=== PATIENT | female | born 1995 | race Caucasian/White ===

== ENCOUNTER 2025-06-09 05:15 | Inpatient (IN) | payer OTHER ==
[~2025-06-09 05:15] MED LIST: Sodium Chloride 0.9% 10 ML Syringe FLUSH PRN
[2025-06-09] MEDS ORDERED: Lactated Ringers 1,000 ML IV SCH (05:30)
[2025-06-09 05:42] LABS: BASOPHILS ABSOLUTE AUTO 0.0 K/mm3 (0.0-0.2); BASOPHILS PERCENT AUTO 0.3 % (0.0-1.0); EOSINOPHILS ABSOLUTE AUTO 0.1 K/mm3 (0.0-0.4); EOSINOPHILS PERCENT AUTO 0.7 % (0.0-6.0); IMMATURE GRAN ABSOLUTE AUTO 0.12 K/mm3 (0.00-0.05); IMMATURE GRAN PERCENT AUTO 1.0 % (0.0-0.4); LYMPHOCYTES ABSOLUTE AUTO 2.2 K/mm3 (1.0-4.8); LYMPHOCYTES PERCENT AUTO 18.8 % (24.0-44.0); MEAN PLATELET VOLUME 10.1 fl (9.4-12.3); MONOCYTES ABSOLUTE AUTO 0.7 K/mm3 (0.0-0.8); MONOCYTES PERCENT AUTO 5.9 % (0.0-8.0); NEUTROPHILS ABSOLUTE AUTO 8.7 K/mm3 (1.8-7.7); NEUTROPHILS PERCENT AUTO 73.3 % (41.0-71.0); NRBC ABSOLUTE 0.08 (0.00-0.02); NRBC PERCENT 0.7 % (0.0-0.2); PLATELET COUNT,PLT 183 K/mm3 (150-400); RED BLOOD CELL COUNT 3.41 M/mm3 (4.10-5.30); WHITE BLOOD CELL COUNT,WBC 11.92 K/mm3 (3.9-11.3)
[2025-06-09] MEDS: Lactated Ringers 1,000 ML IV SCH (06:05)
[2025-06-09] MEDS ORDERED: Morphine PF 10 MG/10 ML SDV ONE (06:28)
[2025-06-09] MEDS ORDERED: diphenhydrAMINE 50 MG/ML SDV IVPUSH PRN ×2 (06:35→11:01)
[2025-06-09] MEDS ORDERED: fentaNYL 100 MCG/2 ML SDV IVPUSH PRN (06:35)
[2025-06-09] MEDS ORDERED: Ondansetron 4 MG/2 ML SDV IVPUSH PRN (06:35)
[2025-06-09] MEDS: Citric Acid/Sodium Citrate Solution 30 ML Cup PO ONE (06:47)
[2025-06-09] MEDS ORDERED: Oxytocin/0.9 % Sodium Chloride 30 UNIT/500 ML BAG IV SCH (07:00)
[2025-06-09] MEDS ORDERED: Lactated Ringers 1,000 ML ONE (07:40)
[2025-06-09] MEDS ORDERED: Ketorolac 30 MG/ML SDV ONE (08:21)
[2025-06-09] MEDS ORDERED: ePHEDrine 50 MG/ML SDV IVPUSH PRN (11:01)
[2025-06-09] MEDS ORDERED: Acetaminophen/HYDROcodone 325-5 MG Tab PO PRN (11:01)
[2025-06-09] MEDS ORDERED: Naloxone 0.4 MG/ML SDV IVPUSH PRN (11:01)
[2025-06-09] MEDS ORDERED: Acetaminophen/oxyCODONE 325-5 MG Tab PO PRN (11:09)
[2025-06-09] MEDS: Acetaminophen/oxyCODONE 325-5 MG Tab PO PRN (12:46)
[2025-06-09] MEDS: Ondansetron 4 MG/2 ML SDV IVPUSH PRN (13:20)
[2025-06-09] MEDS: Ketorolac 30 MG/ML SDV IVPUSH SCH (14:31)
[2025-06-10 05:48] LABS: BASOPHILS ABSOLUTE AUTO 0.0 K/mm3 (0.0-0.2); BASOPHILS PERCENT AUTO 0.4 % (0.0-1.0); EOSINOPHILS ABSOLUTE AUTO 0.1 K/mm3 (0.0-0.4); EOSINOPHILS PERCENT AUTO 1.1 % (0.0-6.0); IMMATURE GRAN ABSOLUTE AUTO 0.05 K/mm3 (0.00-0.05); IMMATURE GRAN PERCENT AUTO 0.7 % (0.0-0.4); LYMPHOCYTES ABSOLUTE AUTO 1.5 K/mm3 (1.0-4.8); LYMPHOCYTES PERCENT AUTO 20.8 % (24.0-44.0); MEAN PLATELET VOLUME 10.1 fl (9.4-12.3); MONOCYTES ABSOLUTE AUTO 0.5 K/mm3 (0.0-0.8); MONOCYTES PERCENT AUTO 6.2 % (0.0-8.0); NEUTROPHILS ABSOLUTE AUTO 5.2 K/mm3 (1.8-7.7); NEUTROPHILS PERCENT AUTO 70.8 % (41.0-71.0); NRBC ABSOLUTE 0.04 (0.00-0.02); NRBC PERCENT 0.5 % (0.0-0.2); PLATELET COUNT,PLT 143 K/mm3 (150-400); RED BLOOD CELL COUNT 2.61 M/mm3 (4.10-5.30); WHITE BLOOD CELL COUNT,WBC 7.40 K/mm3 (3.9-11.3)
[2025-06-10] MEDS ORDERED: Oxytocin/0.9 % Sodium Chloride 30 UNIT/500 ML BAG IV ONE (08:00)
[2025-06-10] MEDS: Sodium Chloride 0.9% 10 ML Syringe FLUSH SCH ×2 (10:16)
== END 2025-06-11 22:50 | disposition home or self-care (01) | DRG 788 ==
LOC: JD.OB 05:15
PROVIDERS: ADMIT Obstetrics & Gynecology; ATTEND Obstetrics & Gynecology
PROC: 10D00Z1 Extraction of Products of Conception, Low, Open Approach (ICD-10-PCS; principal; 2025-06-09 07:30)
DX: O34.211 Maternal care for low transverse scar from previous cesarean delivery (principal); Z3A.39 39 weeks gestation of pregnancy; Z37.0 Single live birth; Z79.899 Other long term (current) drug therapy
CPT/HCPCS: 36415; 59025; 85025; 86592; 86850; 86900; 86901; 94762; A9270-GY; J0690; J1885; J2274; J2405; J2765; J7120; J7121; J7999